=== PATIENT | female | born 1960 | race Caucasian/White ===

== ENCOUNTER 2017-05-02 13:05 | Emergency (ER) | payer SELFPAY ==
[2017-05-02] MEDS ORDERED: OXYCODONE-ACETAMINOPHEN 5-325 MG TABLET PO ONE (13:30)
--- NOTE | 2017-05-02 13:32 | ER Document Report ---
ED Fall - General Chief Complaint: Fall Stated Complaint: FALL LEFT SIDE PAIN Time Seen by Provider: 05/02/17 13:24 Notes: 56 yo female c/o pain to right ribs. tripped on wooden deck, fell onto wooden bar stool hitting right ribs. hurts to breathe, cough. TRAVEL OUTSIDE OF THE [place] IN LAST 30 DAYS: No - HPI Occurred: Yesterday Where: Home Context: Tripped Associated symptoms: None Location of injury/pain: Chest - right ribs, chest wall Quality of pain: Sharp Pain Level: 5 - Related data Allergies/Adverse Reactions: adhesive [Adhesive] Allergy (Verified 05/02/17 13:09) erythromycin base [Erythromycin Base] Allergy (Verified 05/02/17 13:09) iodine [Iodine] Allergy (Verified 05/02/17 13:09) Penicillins Allergy (Verified 05/02/17 13:09) Shellfish * [Shellfish] Allergy (Verified 05/02/17 13:09) seafood Allergy (Uncoded 05/02/17 13:09) Past Medical History - General Information source: Patient - Social History Smoking Status: Current Every Day Smoker Frequency of alcohol use: None Drug Abuse: None Lives with: Family Family History: Reviewed & Not Pertinent Neurological Medical History: Reports: Hx Migraine Renal/ Medical History: Denies: Hx Peritoneal Dialysis Malignancy Medical History: Reports: Hx Breast Cancer Past Surgical History: Reports: Hx Mastectomy - lumpectomy, Hx Tonsillectomy - Immunizations Immunizations up to date: Yes Hx Diphtheria, Pertussis, Tetanus Vaccination: Yes Review of Systems - Review of Systems Constitutional: No symptoms reported EENT: No symptoms reported Cardiovascular: No symptoms reported Respiratory: See HPI Gastrointestinal: No symptoms reported Genitourinary: No symptoms reported Female Genitourinary: No symptoms reported Musculoskeletal: No symptoms reported Skin: No symptoms reported Hematologic/Lymphatic: No symptoms reported Neurological/Psychological: No symptoms reported Physical Exam - Vital signs Vitals: Temp Pulse Resp BP Pulse Ox 98.9 F 89 18 148/86 H 94 05/02/17 13:09 05/02/17 13:09 05/02/17 13:09 05/02/17 13:09 05/02/17 13:09 Interpretation: Normal - General General appearance: Appears well, Alert - HEENT Head: Normocephalic, Atraumatic Eyes: Normal Pupils: PERRL - Respiratory Respiratory status: No respiratory distress Chest status: Tender - right lateral chest wall tender, Pain on movement, Pain with cough, Pain with deep breathing. No: Ecchymosis Breath sounds: Normal Chest palpation: Normal - Cardiovascular Rhythm: Regular Heart sounds: Normal auscultation Murmur: No - Abdominal Inspection: Normal Distension: No distension Bowel sounds: Normal Tenderness: Nontender Organomegaly: No organomegaly - Back Back: Normal, Nontender - Extremities General upper extremity: Normal inspection, Nontender, Normal color, Normal ROM , Normal temperature General lower extremity: Normal inspection, Nontender, Normal color, Normal ROM , Normal temperature, Normal weight bearing. No: Shelley's sign - Neurological Neuro grossly intact: Yes Cognition: Normal Orientation: AAOx4 Rory Coma Scale Eye Opening: Spontaneous Rory Coma Scale Verbal: Oriented Rory Coma Scale Motor: Obeys Commands [place] Coma Scale Total: 15 Speech: Normal Motor strength normal: LUE, RUE, LLE, RLE Sensory: Normal - Psychological Associated symptoms: Normal affect, Normal mood - Skin Skin Temperature: Warm Skin Moisture: Dry Skin Color: Normal Course - Re-evaluation Re-evalutation: 05/02/17 14:30 xray film and rad report reviewed. 2 rib fractures, no pneumothorax. results reviewed with patient. Importance of pulmonary toilet emphasized with patient. will write short Rx for pain medication. pt instructed to f/u primary care. pt agreeable with plan and stable for discharge - Vital Signs Vital signs: Temp Pulse Resp BP Pulse Ox 98.9 F 89 18 148/86 H 94 05/02/17 13:09 05/02/17 13:09 05/02/17 13:09 05/02/17 13:09 05/02/17 13:09 Discharge - Discharge Clinical Impression: Ribs, multiple fractures Qualifiers: Encounter type: initial encounter Fracture type: closed Laterality: right Qualified Code(s): S22.41XA - Multiple fractures of ribs, right side, initial encounter for closed fracture Condition: Stable Disposition: HOME, SELF-CARE Instructions: Rib Injuries and Fractures ([facility]), Oral Narcotic Medication ([facility]) Additional Instructions: You have fractured 2 ribs take pain meds as needed splint right rib cage and encourage deep breathing, coughing follow up with your primary care return to ER for fever, shortness of breath Prescriptions: Methocarbamol [Robaxin 500 Mg Tablet] 1,000 mg PO Q6 #30 tablet Oxycodone HCl/Acetaminophen [Percocet 5-325 mg Tablet] 1 - 2 tab PO ASDIR PRN # 25 tablet PRN Reason:
--- NOTE | 2017-05-02 14:23 | RADIOLOGY REPORT (SQ) ---
EXAM DESCRIPTION: RIBS RIGHT W/PA CHEST COMPLETED DATE/TIME: 05/02/2017 1:51 pm REASON FOR STUDY: fell, hit right ribs COMPARISON: None. TECHNIQUE: Frontal view of the chest and additional views of the right ribs acquired. NUMBER OF VIEWS: Four views LIMITATIONS: None. FINDINGS: FRONTAL CXR: No pneumothorax. No pleural effusion. No atelectasis or infiltrates. RIBS: There are fractures of the right 9th and 10th 3 posterolaterally. No other evidence for fractu re is seen. OTHER: No other significant finding. IMPRESSION: Fractures of the right 9th and 10th ribs posterolaterally. No other evidence for fractu re is seen. COMMENT: SITE OF TRAUMA/COMPLAINT MARKED/STAMP COMPLETED: No TECHNICAL DOCUMENTATION: JOB ID: [id number] [employer]- All Rights Reserved
[2017-05-02 14:45] VITALS: BP 128/88
== END 2017-05-02 14:47 | disposition home or self-care (01) ==
LOC: ER 13:05
DX: S22.41XA Multiple fractures of ribs, right side, initial encounter for closed fracture (principal); W01.190A Fall on same level from slipping, tripping and stumbling with subsequent striking against furniture, initial encounter; Y92.008 Other place in unspecified non-institutional (private) residence as the place of occurrence of the external cause; F17.200 Nicotine dependence, unspecified, uncomplicated; Z85.3 Personal history of malignant neoplasm of breast; Z90.10 Acquired absence of unspecified breast and nipple; Z88.3 Allergy status to other anti-infective agents; Z88.0 Allergy status to penicillin; Z91.013 Allergy to seafood
CPT/HCPCS: 99283